=== PATIENT | female | born 1995 | race Caucasian/White ===

== ENCOUNTER 2022-06-13 16:11 | Outpatient (CLI) | payer OTHER, SELFPAY ==
[2022-06-13 17:45] LABS: Glucose* 91 mg/dL (60-115)
[2022-06-13 21:42] LABS: Chlamydia DNA Amplified* NOT DETECTED (No Detected); GC DNA Amplified* NOT DETECTED (No Detected)
== END 2022-06-13 16:12 | disposition home or self-care (01) ==
PROVIDERS: Visit Provider Registered Nurse
DX: Z01.419 Encounter for gynecological examination (general) (routine) without abnormal findings (principal); N93.0 Postcoital and contact bleeding; Z13.6 Encounter for screening for cardiovascular disorders; Z13.1 Encounter for screening for diabetes mellitus; Z11.3 Encounter for screening for infections with a predominantly sexual mode of transmission
CPT/HCPCS: 80061; 82947; 84439; 84443; 87491; 87591

== ENCOUNTER 2024-06-23 13:25 | Outpatient (CLI) | payer OTHER, SELFPAY ==
[2024-06-30 16:32] LABS: HPV Source Cervix; HPV, High Risk by TMA Not Detected
[2024-07-14 15:29] LABS: Pap Test Reviewed by Path Done
== END 2024-06-23 13:26 | disposition home or self-care (01) ==
PROVIDERS: Visit Provider Registered Nurse
DX: Z12.4 Encounter for screening for malignant neoplasm of cervix (principal); Z11.51 Encounter for screening for human papillomavirus (HPV)
CPT/HCPCS: 87624; 87625; 88141; 88142